=== PATIENT | female | born 1970 | race Caucasian/White ===

== ENCOUNTER → 2017-06-08 | Outpatient (CLI) | payer BC ==
--- NOTE | 2017-06-08 16:05 | REP ---
Digital diagnostic bilateral mammography with CAD and focused right breast sonography: History: Palpable lump in the right breast times 1-2 weeks. Comparison mammography July 10, 2015 and December 16, 2011. Mammographic findings: Skin marker is affixed to the skin at the site of the palpable lump. This projects medially at 3 o'clock. Routine views of the right breast are augmented by magnified focal spot compression CC, MLO and true MLO views. Routine views of the left breast were obtained. Breast parenchyma remains extremely dense in a pattern which may inhibit the sensitivity of mammography. No definite mass lesion is seen. No spiculation or architectural distortion is seen. No microcalcification is observed. Sonographic findings: The right breast is scanned sonographically in the area of the palpable lump from 1 o'clock to 3 o'clock. There is heterogeneous fibroglandular background echotexture. Three cysts are seen at 2 o'clock in the area of the palpable lump. The largest of these measures 1.1 x 0.8 x 0.6 cm. This is located 1.1 cm from the nipple. At 3 o'clock, there is also a 1.0 cm cyst 1.7 cm from the nipple. No mass, architectural distortion, or acoustic shadowing is seen. Impression: BIRADS category 2 benign breast imaging. Simple cyst seen by ultrasound site of the palpable lump. Clinical follow-up is advised. This negative report should not dissuade one from biopsy of a palpable lump depending on its clinical characteristics. BI-RADS/ACR category 2 mammogram. Benign finding(s). Routine annual screening mammography (for women over age 40). This mammogram was interpreted with the aid of an FDA-approved computer-aided detection system. The patient states she/he had a clinical breast exam in May 2017 The patient letter being requested is M2, dense. Signed by Juan Koenig MD 06/08/2017 05:20 P
== END ==
LOC: M RAD 14:42
PROVIDERS: ATTEND Family Medicine
DX: N63 Unspecified lump in breast (principal)
CPT/HCPCS: 76642; G0204

== ENCOUNTER → 2018-05-19 | Outpatient (CLI) | payer BC | LOC: M RAD 14:46 | DX: N60.01 Solitary cyst of right breast (principal) | CPT/HCPCS: 77065 ==

== ENCOUNTER → 2018-08-11 | Outpatient (REF) | payer BC ==
[2018-08-11 14:45] LABS: HEMOGLOBIN 12.5 g/dl (12.0-15.5); MEAN CORPUSCULAR HEMOGLOBIN 30.2 pg (27.0-33.0); MEAN CORPUSCULAR HGB CONC 33.8 g/dl (32.0-36.5); MEAN CORPUSCULAR VOLUME 89.4 fl (80.0-96.0); PLATELET COUNT, AUTOMATED 240 10^3/uL (150-450); RED BLOOD COUNT 4.14 10^6/uL (4.00-5.40); WHITE BLOOD COUNT 6.6 10^3/uL (4.0-10.0)
[2018-08-11 15:02] LABS: ALBUMIN 4.3 GM/DL (3.2-5.2); ALBUMIN/GLOBULIN RATIO 1.16 (1.00-1.93); ALKALINE PHOSPHATASE 69 U/L (45-117); ALT/SGPT 27 U/L (12-78); ANION GAP 6 MEQ/L (8-16); AST/SGOT 23 U/L (7-37); BILIRUBIN,TOTAL 0.7 MG/DL (0.2-1.0); BLOOD UREA NITROGEN 14 MG/DL (7-18); CALCIUM LEVEL 9.4 MG/DL (8.5-10.1); CARBON DIOXIDE LEVEL 30 MEQ/L (21-32); CHLORIDE LEVEL 102 MEQ/L (98-107); CREATININE FOR GFR 0.89 MG/DL (0.55-1.30); FOLATE 15.8 NG/ML (>5.4); FREE T4 0.89 NG/DL (0.76-1.46); GLOMERULAR FILTRATION RATE > 60.0 (>58); GLUCOSE, FASTING 85 MG/DL (70-100); POTASSIUM SERUM 4.4 MEQ/L (3.5-5.1); SODIUM LEVEL 138 MEQ/L (136-145)
[2018-08-13 10:33] LABS: DEAMIDATED GLIADIN ABS, IgA 4 units (0-19); DEAMIDATED GLIADIN ABS, IgG 1 units (0-19); ENDOMYSIAL ANTIBODY IgA Negative (Negative); IMMUNOGLOBULIN A 207 mg/dL (87-352); t-TRANSGLUTAMINASE(tTG) IgA <2 U/mL (0-3); t-TRANSGLUTAMINASE(tTG) IgG <2 U/mL (0-5)
[2018-08-13 10:33] LABS: ZINC PLASMA 91 ug/dL (56-134)
== END ==
LOC: M SFHCADAM 09:17
DX: R53.83 Other fatigue (principal); L65.9 Nonscarring hair loss, unspecified; R10.9 Unspecified abdominal pain

== ENCOUNTER → 2018-12-05 | Outpatient (REF) | payer BC ==
[2018-12-08 14:19] LABS: HPV HYBRID CAPTURE II Negative (Negative)
== END ==
LOC: M LAB REF 17:18
PROVIDERS: ATTEND Advanced Practice Midwife
DX: Z12.4 Encounter for screening for malignant neoplasm of cervix (principal); Z11.51 Encounter for screening for human papillomavirus (HPV)
CPT/HCPCS: 87624; G0123

== ENCOUNTER → 2019-10-23 | Outpatient (CLI) | payer BC ==
--- NOTE | 2019-10-23 15:17 | REP ---
DIGITAL DIAGNOSTIC BILATERAL MAMMOGRAPHY WITH CAD, 3D TOMOGRAPHY, AND FOCUSED LEFT BREAST SONOGRAPHY. HISTORY: Left breast lump times 2 months. Right breast screening. History of cysts. COMPARISON: Mammography December 26, 2018 and June 08, 2017. MAMMOGRAPHIC FINDINGS: A skin marker is affixed to the skin at the site of the palpable lump which projects in the upper outer quadrant on the left. Routine views of the left breast are augmented by magnified focal spot compression images. Breast parenchyma is heterogeneously and rather markedly hyperdense in a pattern which may inhibit the sensitivity of mammography. There is a relatively low-density nodule underlying the skin marker on the CC view similar to the prior study of December 26 2018. This proved to be a 2.3 cm cyst at that time. No other mammographic abnormality is seen today. SONOGRAPHIC FINDINGS: The left breast is scanned at 2-o'clock position in the area of the palpable abnormality. Multiple cysts are apparent. Several are adjacent to one another. These adjacent cysts measure as follows: 2.7 x 0.9 x 1.8 cm, 1.8 x 1.4 x 1.9 cm, 1.5 x 0.5 x 1.6 cm, and 1.0 x 0.9 x 1.1 cm. No solid component is seen. No acoustic shadowing is observed. No sonographically suspicious finding. IMPRESSION: BIRADS 2: BI-RADS/ACR category 2 mammogram. Benign Findings. BI-RADS category 2 benign findings. There is a group of simple cysts adjacent to one another in the upper outer quadrant of the left breast corresponding to the palpable abnormality and the mammographic density. Similar findings were noted sonographically on December 26, 2018 prior study. Clinical followup is advised. Repeat screening mammography recommended in 1 year. This mammogram was interpreted with the aid of an FDA-approved computer-aided detection system. The patient states she had a clinical breast exam in October 30, 2019. The patient letter being requested is M2, dense. This patient's estimated Tyrer-Cuzick lifetime risk assessment for the breast cancer is 11.9 %. Electronically Signed by Juan Koenig MD 10/23/2019 06:56 P
== END ==
LOC: M RAD 11:11
PROVIDERS: ATTEND Family Medicine
DX: N63.20 Unspecified lump in the left breast, unspecified quadrant (principal)
CPT/HCPCS: 76642; 77066; G0279

== ENCOUNTER → 2020-10-18 | Outpatient (CLI) | payer BC | LOC: M WHC 08:58 | PROVIDERS: ATTEND Advanced Practice Midwife | DX: Z12.31 Encounter for screening mammogram for malignant neoplasm of breast (principal) ==

== ENCOUNTER → 2020-10-28 | Outpatient (CLI) | payer BC ==
--- NOTE | 2020-10-28 13:58 | REPMRS ---
Patient History Family history of colorectal cancer at age 60 in maternal grandmother, prostate cancer at age 50 or over in father. 3D TOMOSYNTHESIS WAS PERFORMED. [facility] 11.[facility]%. [place] breast density d. Digital Woman Screen Mammo: October 28, 2020 - Exam #: [id number] Bilateral CC and MLO view(s) were taken. Technologist: Uma Kerns, Technologist Prior study comparison: October 23, 2019, digital mammo diagnostic bilateral, performed at [facility]. December 26, 2018, left breast digital mammo diagnostic unilateral, performed at [facility]. FINDINGS: The breast tissue is extremely dense which could obscure a lesion on mammography. There is a fairly symmetric fibroglandular pattern in both breasts. There has been no interval development of masses, areas of architectural distortion or clusters of microcalcifications typical of malignancy. Dominant nodule in the upper outer quadrant of the left breast has been previously demonstrated to represent a cyst. No significant changes when compared with prior studies. Assessment: BI-RADS/ACR category 2 mammogram. Benign Findings. Recommendation Routine screening mammogram of both breasts in 1 year (for women over age 40). This mammogram was interpreted with the aid of an FDA-approved computer-aided dectection system. Given the extremely dense breast parenchyma bilaterally, consider supplemental screening whole breast ultrasound bilaterally or breast MRI to rule out occult lesions. Electronically Signed By: Swapnil Orosco MD 10/28/20 [id number]
== END ==
LOC: M WHC 12:58
PROVIDERS: ATTEND Advanced Practice Midwife
DX: Z12.31 Encounter for screening mammogram for malignant neoplasm of breast (principal); Z80.0 Family history of malignant neoplasm of digestive organs; Z80.42 Family history of malignant neoplasm of prostate

== ENCOUNTER → 2021-09-08 | Outpatient (REF) | payer BC | LOC: M SFHCWAGY 18:13 | PROVIDERS: ATTEND Advanced Practice Midwife | DX: Z12.4 Encounter for screening for malignant neoplasm of cervix (principal) | CPT/HCPCS: 87624; G0123 ==

== ENCOUNTER → 2021-11-17 | Outpatient (REF) | payer BC ==
[2021-11-17 13:46] LABS: CHOLESTEROL RISK RATIO 2.686 (<5); THYROID STIMULATING HORMONE 1.83 uIU/ML (0.358-3.740)
== END ==
LOC: M LABDRWAD 12:22 → M SFHCWAGY 12:22
PROVIDERS: ATTEND Advanced Practice Midwife
DX: Z13.220 Encounter for screening for lipoid disorders (principal); R63.5 Abnormal weight gain

== ENCOUNTER → 2021-12-15 | Outpatient (CLI) | payer BC | LOC: M WHC 08:10 | PROVIDERS: ATTEND Advanced Practice Midwife | DX: Z12.31 Encounter for screening mammogram for malignant neoplasm of breast (principal); N63.20 Unspecified lump in the left breast, unspecified quadrant ==

== ENCOUNTER → 2022-11-09 | Outpatient (REF) | payer BC ==
[2022-11-09 15:09] LABS: APPEARANCE, URINE MANUAL CLEAR (CLEAR); COLOR, URINE MANUAL LT YELLOW (YELLOW)
[2022-11-09 15:10] LABS: BILIRUBIN, URINE MANUAL NEGATIVE (NEGATIVE); BLOOD URINE MANUAL NEGATIVE (NEGATIVE); GLUCOSE, URINE (UA) MANUAL NEGATIVE (NEGATIVE); KETONE, URINE MANUAL NEGATIVE (NEGATIVE); LEUKOCYTE ESTERASE, URINE MAN POSITIVE (NEGATIVE); NITRITE, URINE MANUAL NEGATIVE (NEGATIVE); PROTEIN, URINE MANUAL TRACE mg/dL (NEGATIVE); UROBILINOGEN, URINE MANUAL NORMAL (NORMAL)
[2022-11-09 15:11] LABS: URIC ACID 4.7 MG/DL (3.1-7.8)
[2022-11-09 15:12] LABS: C REACTIVE PROTEIN QUANTITATIV < 0.40 MG/DL (<1.0); LIPASE 42 U/L (12-53)
[2022-11-09 15:13] LABS: AMYLASE 77 U/L (30-118)
[2022-11-09 15:14] LABS: ALBUMIN 4.1 G/DL (3.2-5.2); ALKALINE PHOSPHATASE 69 U/L (46-116); ALT/SGPT 26 U/L (7.0-40); AST/SGOT 25 U/L (<34); BILIRUBIN,TOTAL 0.8 MG/DL (0.3-1.2); BLOOD UREA NITROGEN 18 MG/DL (9-23); CALCIUM LEVEL 9.4 MG/DL (8.5-10.1); CARBON DIOXIDE LEVEL 29 MMOL/L (20-31); CHLORIDE LEVEL 103 MMOL/L (98-107); CHOLESTEROL LEVEL 242 MG/DL (<200); CHOLESTEROL RISK RATIO 3.07 (<5); CREATININE FOR GFR 0.89 MG/DL (0.55-1.30); GLOMERULAR FILTRATION RATE > 60.0 (>51); GLUCOSE, FASTING 88 MG/DL (60-100); HDL CHOLESTEROL 78.6 MG/DL (>40); LDL CHOLESTEROL 143.2 MG/DL (<100); NON-HDL-C 163 MG/DL; POTASSIUM SERUM 4.6 MMOL/L (3.5-5.1); RHEUMATOID FACTOR QUANT 4.5 IU/ML (<14); SODIUM LEVEL 139 MMOL/L (136-145); THYROID STIMULATING HORMONE 2.042 uIU/ML (0.55-4.78); TOTAL PROTEIN 7.4 G/DL (5.7-8.2); TRIGLYCERIDES LEVEL 101 MG/DL (<150)
[2022-11-09 15:15] LABS: FREE T4 0.98 NG/DL (0.89-1.76)
[2022-11-09 15:20] LABS: HEMOGLOBIN A1c 4.8 % (4.0-6.0)
[2022-11-09 15:27] LABS: EOS # 0.1 10^3/uL (0.0-0.5); HEMATOCRIT 38.5 % (36.0-47.0); HEMOGLOBIN 12.8 g/dl (12.0-15.5); LYMPH # 1.2 10^3/uL (1.5-5.0); LYMPH % 28.9 % (24.0-44.0); MEAN CORPUSCULAR HEMOGLOBIN 29.9 pg (27.0-33.0); MEAN CORPUSCULAR HGB CONC 33.2 g/dl (32.0-36.5); MONO # 0.3 10^3/uL (0.0-0.8); NEUTROPHILS # 2.3 10^3/uL (1.5-8.5); NEUTROPHILS % 58.6 % (36.0-66.0); PLATELET COUNT, AUTOMATED 204 10^3/uL (150-450); RED BLOOD COUNT 4.28 10^6/uL (4.00-5.40)
[2022-11-09 16:06] LABS: BACTERIA, URINE NONE SEEN; HYALINE CAST, URINE NONE SEEN /lpf (0-1); RBC, URINE 0-1 /hpf (0-3); SQUAMOUS EPITHELIAL CELL URINE SMALL AMOUNT /hpf (SMALL AMT); TRANSITIONAL EPI CELLS, URINE SMALL AMOUNT /hpf
[2022-11-09 16:45] LABS: ERYTHROCYTE SEDIMENTATION RATE 8 mm/hr (0-30)
== END ==
LOC: M SFHCADAM 08:02
PROVIDERS: ATTEND Family Medicine
DX: R30.0 Dysuria (principal); M25.40 Effusion, unspecified joint; M25.562 Pain in left knee; G89.29 Other chronic pain; I95.1 Orthostatic hypotension; R35.89 Other polyuria; R63.2 Polyphagia; R63.5 Abnormal weight gain; K59.00 Constipation, unspecified; R14.0 Abdominal distension (gaseous); R10.13 Epigastric pain; M25.661 Stiffness of right knee, not elsewhere classified; M25.662 Stiffness of left knee, not elsewhere classified

== ENCOUNTER → 2022-12-21 | Outpatient (CLI) | payer BC | LOC: M WHC 13:04 | PROVIDERS: ATTEND Advanced Practice Midwife | DX: Z12.31 Encounter for screening mammogram for malignant neoplasm of breast (principal); N63.21 Unspecified lump in the left breast, upper outer quadrant ==

== ENCOUNTER → 2023-01-01 | Outpatient (CLI) | payer BC | LOC: M WHC 11:11 | PROVIDERS: ATTEND Advanced Practice Midwife | DX: N95.0 Postmenopausal bleeding (principal) ==

== ENCOUNTER → 2023-02-01 | Outpatient (CLI) | payer BC | LOC: M WHC 10:18 | PROVIDERS: ATTEND Advanced Practice Midwife | DX: N95.0 Postmenopausal bleeding (principal) ==

== ENCOUNTER 2023-03-23 06:20 | Day surgery (SDC) | payer BC ==
[~2023-03-23] VITALS: Ht 167.6 cm; Wt 56.4 kg
[2023-03-23 06:55] LABS: HEMATOCRIT 33.2 % (36.0-47.0); HEMOGLOBIN 11.1 g/dl (12.0-15.5); MEAN CORPUSCULAR HEMOGLOBIN 29.8 pg (27.0-33.0); MEAN CORPUSCULAR HGB CONC 33.4 g/dl (32.0-36.5); PLATELET COUNT, AUTOMATED 186 10^3/uL (150-450); RED BLOOD COUNT 3.73 10^6/uL (4.00-5.40); WHITE BLOOD COUNT 3.9 10^3/uL (4.0-10.0)
[2023-03-23] MEDS ORDERED: LR 1,000 ML IV SCH ×2 (07:25→09:00)
[2023-03-23] MEDS ORDERED: SCOPOLAMINE 1MG TRANSDERMAL PATCH TOP ONE (07:25)
[2023-03-23] MEDS ORDERED: LIDOCAINE 2% 100MG/5ML SDV (FOR ANES.) As Ordered ONE (08:06)
[2023-03-23] MEDS ORDERED: KETOROLAC 60MG 2ML VIAL As Ordered ONE (08:06)
[2023-03-23] MEDS ORDERED: ONDANSETRON 4MG 2ML VIAL As Ordered ONE (08:06)
[2023-03-23] MEDS ORDERED: MIDAZOLAM INJ 2MG/2ML VIAL As Ordered ONE (08:06)
[2023-03-23] MEDS ORDERED: PHENYLephrine 500MCG 5ML (100MCG/ML) SYRINGE As Ordered ONE (08:06)
[2023-03-23] MEDS ORDERED: fentaNYL 100 MCG/2 ML INJECTION As Ordered ONE (08:06)
[2023-03-23] MEDS ORDERED: METOCLOPRAMIDE INJ 10MG/2ML VIAL As Ordered ONE (08:06)
[2023-03-23] MEDS ORDERED: ACETAMINOPHEN 1000MG 100ML IV BAG As Ordered ONE (08:06)
[2023-03-23] MEDS ORDERED: propofoL 200 MG/20 ML VIAL As Ordered ONE (08:06)
[2023-03-23] MEDS ORDERED: ACETAMINOPHEN 500 MG TAB PO ONE (09:00)
[2023-03-23 09:49] VITALS: TEMP 96.6; O2SAT 100
[2023-03-23 09:50] VITALS: BP 102/68
== END 2023-03-23 09:51 | disposition home or self-care (01) ==
LOC: M SDC 06:20
PROVIDERS: ATTEND Specialist
DX: N95.0 Postmenopausal bleeding (principal); K21.9 Gastro-esophageal reflux disease without esophagitis; G43.909 Migraine, unspecified, not intractable, without status migrainosus; Z88.2 Allergy status to sulfonamides
CPT/HCPCS: 36415; 58558; 85027; 88305; J0131; J1100; J1885; J2250; J2370; J2405; J2765; J3010

== ENCOUNTER → 2023-12-27 | Outpatient (CLI) | payer BC | LOC: M WHC 13:00 | PROVIDERS: ATTEND Advanced Practice Midwife | DX: Z12.31 Encounter for screening mammogram for malignant neoplasm of breast (principal) ==

== ENCOUNTER → 2024-01-20 | Outpatient (CLI) | payer BC | LOC: M ADAMS 11:41 | PROVIDERS: ATTEND Family Medicine | DX: M54.12 Radiculopathy, cervical region (principal) ==

== ENCOUNTER → 2024-03-20 | Outpatient (CLI) | payer BC | LOC: M PLAIMG 08:57 | PROVIDERS: ATTEND Family Medicine | DX: M54.12 Radiculopathy, cervical region (principal); M48.02 Spinal stenosis, cervical region ==

== ENCOUNTER → 2024-07-17 | Outpatient (REF) | payer BC ==
[2024-07-17 14:07] LABS: APPEARANCE, URINE CLEAR (CLEAR); BACTERIA, URINE AUTO NEGATIVE (NEGATIVE); BILIRUBIN, URINE AUTO NEGATIVE (NEGATIVE); BLOOD, URINE BLOOD NEGATIVE (NEGATIVE); COLOR, URINE YELLOW (YELLOW); GLUCOSE, URINE (UA) AUTO NEGATIVE (NEGATIVE); KETONE, URINE AUTO NEGATIVE (NEGATIVE); LEUKOCYTE ESTERASE, URINE AUTO NEGATIVE (NEGATIVE); NITRITE, URINE AUTO NEGATIVE (NEGATIVE); PROTEIN, URINE AUTO NEGATIVE (NEGATIVE); RBC, URINE AUTO 0 /HPF (0-3); SPECIFIC GRAVITY URINE AUTO 1.017 (1.002-1.035); SQUAMOUS EPITHELIAL CELL UR AU 2 /HPF (0-6); UROBILINOGEN, URINE AUTO 0.2 mg/dL (0.0-2.0); WBC, URINE AUTO 0 /HPF (0-3)
[2024-07-17 14:57] LABS: ALBUMIN 4.2 G/DL (3.2-5.2); ALKALINE PHOSPHATASE 69 U/L (46-116); ALT/SGPT 18 U/L (7.0-40); AST/SGOT 17 U/L (<34); BILIRUBIN,TOTAL 0.9 MG/DL (0.3-1.2); BLOOD UREA NITROGEN 16 MG/DL (9-23); CALCIUM LEVEL 9.5 MG/DL (8.5-10.1); CARBON DIOXIDE LEVEL 28 MMOL/L (20-31); CHLORIDE LEVEL 105 MMOL/L (98-107); CHOLESTEROL LEVEL 243 MG/DL (<200); CHOLESTEROL RISK RATIO 2.87 (<5); CREATININE FOR GFR 0.94 MG/DL (0.55-1.30); GLOMERULAR FILTRATION RATE > 60.0 (>51); GLUCOSE, FASTING 83 MG/DL (60-100); HDL CHOLESTEROL 84.4 MG/DL (>40); LDL CHOLESTEROL 142.6 MG/DL (<100); NON-HDL-C 158.6 MG/DL; POTASSIUM SERUM 4.3 MMOL/L (3.5-5.1); SODIUM LEVEL 138 MMOL/L (136-145); TOTAL PROTEIN 7.4 G/DL (5.7-8.2); TRIGLYCERIDES LEVEL 80 MG/DL (<150)
[2024-07-17 15:19] LABS: HEMATOCRIT 37.6 % (36.0-47.0); HEMOGLOBIN 12.7 g/dl (12.0-15.5); MEAN CORPUSCULAR HEMOGLOBIN 30.2 pg (27.0-33.0); MEAN CORPUSCULAR HGB CONC 33.8 g/dl (32.0-36.5); MEAN CORPUSCULAR VOLUME 89.5 fl (80.0-96.0); PLATELET COUNT, AUTOMATED 216 10^3/uL (150-450); WHITE BLOOD COUNT 4.3 10^3/uL (4.0-10.0)
[2024-07-17 15:37] LABS: HEMOGLOBIN A1c 4.9 % (4.0-6.0)
== END ==
LOC: M SFHCADAM 08:07
PROVIDERS: ATTEND Physician Assistant
DX: R10.2 Pelvic and perineal pain (principal); M54.9 Dorsalgia, unspecified; R10.819 Abdominal tenderness, unspecified site; Z13.220 Encounter for screening for lipoid disorders; R73.09 Other abnormal glucose

== ENCOUNTER → 2024-07-17 | Outpatient (CLI) | payer BC ==
[~2024-07-17] MED LIST: GASTROGRAFIN SOLUTION 30ML As Ordered ONE; ISOVUE-370 76% 100ML VIAL As Ordered ONE
== END ==
LOC: M RAD 09:13
PROVIDERS: ATTEND Physician Assistant
DX: R10.2 Pelvic and perineal pain (principal); M54.9 Dorsalgia, unspecified; R10.819 Abdominal tenderness, unspecified site
CPT/HCPCS: 74178; Q9963; Q9967

== ENCOUNTER → 2024-10-25 | Outpatient (CLI) | payer BC | LOC: M WHC 06:45 | PROVIDERS: ATTEND Specialist | DX: R10.2 Pelvic and perineal pain (principal); N83.202 Unspecified ovarian cyst, left side ==